=== PATIENT | male | born 1955 | race Caucasian/White ===

== ENCOUNTER 2024-02-11 13:45 | Inpatient (IN) ==
--- NOTE | 2024-02-11 14:23 | XRay Report ---
XR chest 1V portable CLINICAL HISTORY: stroke alert TECHNIQUE: Single frontal radiograph of the chest was obtained. Comparison: Comparison is made to chest radiograph 01/31/2024 FINDINGS: No lines and tubes are seen. The cardiomediastinal silhouette is normal. The lungs are clear. No evid ence of pleural effusion or pneumothorax. IMPRESSION: No acute chest disease. ACT 112: Negative or not required by law. Electronically signed by: Blair Dougherty M.D. 02/11/2024 2:22 PM
[2024-02-11 14:24] LABS: Hematocrit (blood only) 42.9 % (42.0-52.0); Hemoglobin 14.4 g/dl (14.0-18.0); Mean Corpuscular Hemoglobin 29.6 pg (25.0-34.0); Mean Corpuscular Hgb Conc 33.6 g/dL (32.0-36.0); Mean Corpuscular Volume 88.3 fL (80.0-100.0); Platelet Count 297 K/uL (130-400); RDW Coefficient of Variation 11.9 % (11.5-14.5); Red Blood Count 4.86 M/uL (4.70-6.10); White Blood Count 19.07 K/ul (4.8-10.8)
[2024-02-11 14:39] LABS: Albumin Globulin Ratio 1.1 (0.9-2); Albumin Level 3.9 gm/dl (3.4-5.0); BUN Creatinine Ratio 19.8 (10-20); Bilirubin,Total 0.8 mg/dl (0.2-1.0); Calcium 9.3 mg/dl (8.6-10.3); Creatinine Clr Calc Pharmacy 81.1 ml/min; Est GFR (African American) 102.5 ml/min; Est GFR (Non-African American) 88.5 ml/min; Globulin 3.6 gm/dl (2.5-4.0); Magnesium 1.7 mg/dl (1.7-2.4); Total Protein 7.5 gm/dl (6.0-8.3)
--- NOTE | 2024-02-11 14:41 | Emergency Department Note ---
Impression & Plan Back pain, Bulging of intervertebral disc between L4 and L5, Leukocytosis ED Provider Note NAME: BOUBACAR CASTORENA AGE: 69 SEX: M : 1955 ARRIVES VIA: Walk-In INFORMANT: Patient ED PROVIDER(S): Peter Richter DO CHIEF COMPLAINT: Back pain HPI: Patient is a 69-year-old male who presents to the ER with a past medical history of bulging disc at L4-L5 and hypertension for back pain. Pain has been present for the past 3 weeks. It radiates to the anterior aspect of the bilateral thighs where he has paresthesias. Recently over the past week and a half to 2 weeks it has been painful. Denies any weakness or numbness. Able to urinate move his bowels. He notes that depending on the position he has pain in his groin bilaterally. Last night he notes it moved from the left to the right side of his thighs and became worse than what was previously. He admits that he had an MRI and followed up with Dr. Chirinos of the lumbar spine just this past week. MRI showed a disc bulge but Dr. Chirinos at that time did not feel that it was causing his symptoms. Denies any fevers, trauma, IV drug use, cancer or surgeries or dialysis. Patient did just recently stop using steroids with the last dose being this past Tuesday. Denies any headache or change in vision. No chest pain or shortness of breath. No nausea, vomiting, or diarrhea. provides additional history and notes that they have been here 4 times in the past nearly 10 days and just seen here earlier today. They are not leaving as he can not get comfortable at home. ADDITIONAL HISTORY OBTAINED: Per HPI Chronic Medical/Social Conditions Affecting Care: Per HPI PAST MEDICAL HISTORY:See Below PAST SURGICAL HISTORY:See Below FAMILY HISTORY:See Below SOCIAL HISTORY:See Below HOME MEDICATIONS:See Below ALLERGIES:See Below VITALS:See Below PHYSICAL EXAMINATION: GENERAL: Sitting up in bed, alert, well appearing, well nourished, no distress, non-toxic EYE EXAM: normal conjunctiva. PERRL and EOM's grossly intact. OROPHARYNX: no exudate, no erythema, lips, buccal mucosa, and tongue normal and mucous membranes are moist NECK: supple, no nuchal rigidity, no adenopathy, non-tender LUNGS: Clear to auscultation. Normal chest wall mechanics HEART: no murmurs, S1 normal and S2 normal ABDOMEN: abdomen soft, non-tender, normo-active bowel sounds, no masses, no rebound or guarding. BACK: Back is symmetrical on inspection and there is no deformity, no midline tenderness, no CVA tenderness. SKIN: no rashes and no bruising UPPER EXTREMITIES: upper extremities are grossly normal. LOWER EXTREMITIES: No pitting edema. NEURO EXAM: Normal sensorium, cranial nerves II-XII grossly intact, normal speech, no gross weakness of arms, no gross weakness of legs. No drift. Finger to nose intact. Gross sensation intact. MEDICAL DECISION MAKING: Patient is a 69-year-old male who presents ER for the above-stated complaint. IV was established medicos obtained. Patient has had 4 visits in the past nearly 10 days. Was just seen here earlier today. Presents back with who is present at bedside who provides additional history and notes that he cannot go home. Labs show leukocytosis of 19,000. No significant anemia. INR unremarkable. BMP with sodium 133. LFTs bilirubin was unremarkable. CRP was mildly elevated at 1.5 and ESR was elevated at 50. UA was clean. notes that he has a positive Lyme test. No testing within the system and consequently Lyme was obtained. IgG was positive. IgM was was pending upon admission. He was given a dose of IV Rocephin. I do favor this likely explains his diffuse arthralgias and myalgias. In regards to the back pain he just recently had an MRI of the lumbar spine. Although he has a white count of fever this is likely secondary to steroids as he is been on them with his last dose on Tuesday. Patient was updated bedside. Discussed case with the hospitalist for further evaluation management treatment. He was given Toradol while in the ER and did help/improve his symptoms. CT abdomen pelvis was obtained again due to the significant leukocytosis but as discussed previously I do favor this secondary to the steroids. CT abdomen pelvis was unremarkable for any acute change. Consults/Care Managements Discussions: Per [facility] Triage Nursing notes reviewed. Limited review of prior medical records performed Vital Signs: reviewed and remarkable for no significant abnormalities Differential diagnosis: Musculoskeletal, disc herniation, fracture, metastatic disease, cord compression, discitis, sciatica, cauda equina, infection, aortic disease, renal colic, gastrointestinal, as well as other pathologies. ER treatment provided: See below Diagnostics interpreted by me include EKG and cardiac monitoring as listed below: -Cardiac Monitoring: An order was placed for continuous cardiac monitoring. The monitor shows a rate of 80 with sinus rhythm. -ECG: Sinus rhythm rate of 79 Normal axis No PVCs QTc 428 -Laboratory studies:Interpreted by me as stated above in MDM and shown below. Imaging studies: Xrays: As interpreted by me: Portable AP upright 1 view of the chest shows no focal infiltrate CTs show: CT abdomen pelvis shows no acute pathology Critical Care: None Past Med/Surg History Problem List (Updated 02/11/24 @ 18:31 by Peter Richter DO) Leukocytosis (Acute) Heart block AV first degree Acute bilateral low back pain with right-sided sciatica (Acute) Acute bilateral low back pain with left-sided sciatica (Acute) Bulging of intervertebral disc between L4 and L5 (Acute) Back pain (Acute) Hypertension (Acute) Encounter for pre-operative examination Medical History Kidney stones History of skin cancer Barretts esophagus GERD (gastroesophageal reflux disease) Surgical History Hx of tonsillectomy History of cholecystectomy History of appendectomy History of esophagogastroduodenoscopy (EGD) History of colonoscopy Social History Smoking Status: Never smoker Second Hand Exposure: No; Do You Dip or Chew Tobacco: Yes (CHEWS 1 CAN PER 2-3 DAYS); Hx Alcohol Use: Yes Alcohol type: beer Hx Substance Use: No Preferred Language: Welsh Communication Ability: Effective Wash Box Operator Required: No Beliefs That Will Affect Care: None Current Living Situation: Spouse Feels Safe at Home: Yes Assistive Devices: Glasses Allergies Allergies Allergy/AdvReac Type Severity Reaction Status Date / Time acetaminophen [From Tylenol] AdvReac Unknown Verified 02/02/24 09:49 Home Meds Home Medications Medication Instructions Recorded Confirmed atorvastatin 40 mg tablet (Lipitor) 40 mg PO QPM 02/13/18 02/11/24 multivitamin (Multiple Vitamins 1 tab PO QPM 02/13/18 02/11/24 tablet) omega 6-qzr-daj-fish oil 1,000 mg 1 tab PO QPM 02/13/18 02/11/24 (120 mg-180 mg) capsule (Fish Oil) aspirin 81 mg tablet,delayed 81 mg PO QPM 01/31/24 02/11/24 release pantoprazole 40 mg tablet,delayed 40 mg PO DAILY 01/31/24 02/11/24 release magnesium oxide 800 mg PO DAILY 02/02/24 02/11/24 doxycycline hyclate 100 mg tablet 100 mg PO BID 02/11/24 02/11/24 Previous Rx's Medication Instructions Recorded methylprednisolone 4 mg tablets in See Rx Instructions .Route 02/02/24 a dose pack (Medrol (Luther)) .COMPLEX #21 ea oxycodone 5 mg tablet 5 mg PO Q6H PRN pain #12 tabs 02/02/24 ketorolac 10 mg tablet 10 mg PO Q8H PRN pain 4 days #14 02/11/24 tabs Results & Data (ED) Vital Signs Vital Signs - 24 hr 02/11/24 13:47 02/11/24 13:47 02/11/24 16:00 Temperature 36.6 C Temperature Source Temporal Artery Scan Pulse Rate 86 Pulse Rate [Left Finger] 85 Respiratory Rate 18 18 16 Blood Pressure 129/77 Blood Pressure [Left Arm] 134/76 Blood Pressure Mean 94 Blood Pressure Mean [Left Arm] 95 Pulse Oximetry 99 98 Sepsis Recent Fever Within 48 Hours No Sepsis New/Unexplained Change in Mental Status N/A Sepsis Action Taken by Nursing No Action Required 02/11/24 16:01 Temperature Temperature Source Pulse Rate 91 H Pulse Rate [Left Finger] Respiratory Rate Blood Pressure Blood Pressure [Left Arm] Blood Pressure Mean Blood Pressure Mean [Left Arm] Pulse Oximetry Sepsis Recent Fever Within 48 Hours Sepsis New/Unexplained Change in Mental Status Sepsis Action Taken by Nursing Laboratory Data 02/11/24 14:05 02/11/24 14:05 Lab Results 02/11/24 02/11/24 02/11/24 Range/Units 14:00 14:05 15:08 WBC 19.07 H (4.8-10.8) K/ul RBC 4.86 (4.70-6.10) M/uL Hgb 14.4 (14.0-18.0) g/dl Hct 42.9 (42.0-52.0) % MCV 88.3 (80.0-100.0) fL MCH 29.6 (25.0-34.0) pg MCHC 33.6 (32.0-36.0) g/dL RDW Std Deviation 38.0 (36.4-46.3) fL RDW Coeff of Radha 11.9 (11.5-14.5) % Plt Count 297 (130-400) K/uL MPV 9.0 L (9.4-12.4) fL ESR 59 H (0-20) mm/hr PT Cancelled 11.4 INR Cancelled 1.1 APTT Cancelled 28 PTT Ratio Cancelled 1.0 Sodium 133 L (136-145) mmol/L Potassium 4.0 (3.5-5.1) mmol/L Chloride 100 (98-107) mmol/L Carbon Dioxide 23 (21-32) mmol/L Anion Gap 10 (3-11) BUN 17 (6-23) mg/dl Creatinine 0.86 (0.6-1.4) mg/dl Est Cr Clr Drug Dosing 81.1 ml/min Est GFR ( Amer) 102.5 ml/min Est GFR (Non-Af Amer) 88.5 ml/min BUN/Creatinine Ratio 19.8 (10-20) Glucose 121 H (70-99(Fasting)) mg/dl Calcium 9.3 (8.6-10.3) mg/dl Magnesium 1.7 (1.7-2.4) mg/dl Total Bilirubin 0.8 (0.2-1.0) mg/dl AST 23 (13-39) U/L ALT 48 (7-52) U/L Alkaline Phosphatase 145 H (34-104) U/L Total Creatine Kinase 41 (30-223) U/L C-Reactive Protein 1.53 H (0-0.5) mg/dl Total Protein 7.5 (6.0-8.3) gm/dl Albumin 3.9 (3.4-5.0) gm/dl Globulin 3.6 (2.5-4.0) gm/dl Albumin/Globulin Ratio 1.1 (0.9-2) Lyme Disease Screen Positive H (Negative) Lyme Tier 2 IgG Confirm Positive H (Negative) Administered Medications Discontinued Medications Ceftriaxone Sodium (Rocephin) 2,000 mg in 50 mls @ 100 mls/hr IV NOW STA Stop: 02/11/24 15:06 Last Infusion: 02/11/24 15:23 Dose: Infused Documented By: Admin: 02/11/24 14:53 Dose: 100 mls/hr Documented By: SETH Sodium Chloride (Nss) 1,000 mls @ 999 mls/hr IV .Q1H1M ONE Stop: 02/11/24 15:42 Last Infusion: 02/11/24 15:51 Dose: Infused Documented By: Admin: 02/11/24 14:50 Dose: 999 mls/hr Documented By: SETH Ioversol (Optiray 320 100ml) 93 ml IV ONCE ONE Stop: 02/11/24 15:45 Last Admin: 02/11/24 15:45 Dose: 93 ml Documented By: ASHLEY Ketorolac Tromethamine (Ketorolac Tromethamine 15 Mg/Ml Vial) 15 mg IV NOW ONE Stop: 02/11/24 14:38 Last Admin: 02/11/24 14:51 Dose: 15 mg Documented By: SETH Imaging Data Radiologist's Impression: Chest X-Ray 02/11/24 13:53 XR chest 1V portable CLINICAL HISTORY: stroke alert TECHNIQUE: Single frontal radiograph of the chest was obtained. Comparison: Comparison is made to chest radiograph 01/31/2024 FINDINGS: No lines and tubes are seen. The cardiomediastinal silhouette is normal. The lungs are clear. No evidence of pleural effusion or pneumothorax. IMPRESSION: No acute chest disease. ACT 112: Negative or not required by law. Electronically signed by: Blair Dougherty M.D. 02/11/2024 2:22 PM Abdomen/Pelvis CT 02/11/24 14:42 CT abd pelvis IV con only CLINICAL HISTORY: abd pain wbc 20k and abck pain TECHNIQUE: Helical axial images of the abdomen and pelvis were obtained and displayed. Automated dose lowering techniques and/or adjustment according to patient size were utilized for this exam. This exam was performed with intravenous contrast. CT DOSE: 937.8 mGy.cm COMPARISON: Comparison is made to CT abdomen pelvis 01/31/2024 FINDINGS: Lower chest: Bibasilar atelectasis versus scarring is seen. Liver: Unremarkable. No focal lesions are seen. Gallbladder and biliary tree: Patient is status post cholecystectomy. Physiologic prominence of the biliary ducts is noted. Pancreas: Unremarkable, no focal lesions. Spleen: Unremarkable. Adrenals: Unremarkable. Kidneys and ureters: Nonobstructive nephrolithiasis is seen. 11 mm cyst is seen on the left. Bladder: Unremarkable. Reproductive organs: Prostatomegaly is seen. Bowel: Moderate hiatal hernia is seen. Lymph nodes Retroperitoneal: Unremarkable. Pelvic: Unremarkable. Mesenteric: Unremarkable. Peritoneum: Normal. Vessels: Unremarkable. Abdominal wall: Unremarkable. Bones: Unremarkable. IMPRESSION: 1. No acute abnormality to explain leukocytosis. 2. Diverticulosis without diverticulitis. 3. Status post cholecystectomy. ACT 112: Negative or not required by law. Electronically signed by: Blair Dougherty M.D. 02/11/2024 4:06 PM Discharge Plan Visit Data Chief Complaint: Back Injury/Pain ED Provider: Peter Richter Discharge Problem: Back pain, Bulging of intervertebral disc between L4 and L5, Leukocytosis Patient Disposition: Admitted As Inpatient Discharge Instructions Interventions: ED Discharge Assessment Last Done: 02/11/24 18:03 Discharge Problem: Back pain Qualifiers: Back pain location: low back pain Chronicity: acute Back pain laterality: u nspecified Sciatica presence: unspecified whether sciatica present Qualified Code(s): M54.50 - Low back pain, unspecified Leukocytosis Qualifiers: Leukocytosis type: unspecified Qualified Code(s): D72.829 - Elevated white blood cell count, unspecified
[2024-02-11] MEDS: SODIUM CHLORIDE 0.9% 1,000 ML IV ONE (14:50)
[2024-02-11] MEDS: KETOROLAC TROMETHAMINE 15 MG/ML VIAL IV ONE (14:51)
[2024-02-11] MEDS: cefTRIAXone SODIUM 2,000 MG/50 ML BAG IV STA (14:53)
[2024-02-11 14:59] LABS: C Reactive Protein 1.53 mg/dl (0-0.5)
[2024-02-11 15:16] LABS: Appearance Urine Clear (Clear); Bacteria Urine Automated None Seen (None Seen); Bilirubin Urine Negative (Negative); Blood Urine Negative (Negative); Cast Urine Automated 0-2 /lpf (0-2); Color Urine Yellow; Epithelial Cell Urine Auto 0-2 /hpf (0-2); Glucose Urine UA Negative (Negative); Ketones Urine 1+ (Negative); Leukocyte Esterase Urine Trace (Negative); Nitrite Urine Negative (Negative); Protein Urine Negative (Negative); RBC Urine Automated 0-2 /hpf (0-2); Specific Gravity Urine 1.017 (1.000-1.030); Urobilinogen Urine Negative (Negative); WBC Urine Automated 0-5 /hpf (0-5)
[2024-02-11] MEDS: OPTIRAY 320 100ml IV ONE (15:45)
[2024-02-11 15:55] LABS: INR 1.1 (0.9-1.1); Partial Thromboplastin Time 28 Seconds (21-31); Prothrombin Time 11.4 Seconds (9.0-12.0)
--- NOTE | 2024-02-11 16:09 | CT Scan Report ---
CT abd pelvis IV con only CLINICAL HISTORY: abd pain wbc 20k and abck pain TECHNIQUE: Helical axial images of the abdomen and pelvis were obtained and displayed. Automated dose lowering techniques and/or adjustment according to patient size were utilized for this exam. This e xam was performed with intravenous contrast. CT DOSE: 937.8 mGy.cm COMPARISON: Comparison is made to CT abdomen pelvis 01/31/2024 FINDINGS: Lower chest: Bibasilar atelectasis versus scarring is seen. Liver: Unremarkable. No focal lesions are seen. Gallbladder and biliary tree: Patient is status post cholecystectomy. Physiologic prominence of the b iliary ducts is noted. Pancreas: Unremarkable, no focal lesions. Spleen: Unremarkable. Adrenals: Unremarkable. Kidneys and ureters: Nonobstructive nephrolithiasis is seen. 11 mm cyst is seen on the left. Bladder: Unremarkable. Reproductive organs: Prostatomegaly is seen. Bowel: Moderate hiatal hernia is seen. Lymph nodes Retroperitoneal: Unremarkable. Pelvic: Unremarkable. Mesenteric: Unremarkable. Peritoneum: Normal. Vessels: Unremarkable. Abdominal wall: Unremarkable. Bones: Unremarkable. IMPRESSION: 1. No acute abnormality to explain leukocytosis. 2. Diverticulosis without diverticulitis. 3. Status post cholecystectomy. ACT 112: Negative or not required by law. Electronically signed by: Blair Dougherty M.D. 02/11/2024 4:06 PM
--- NOTE | 2024-02-11 17:04 | History & Physical Report ---
Date of Service February 11, 2024 Assessment & Plan (1) Acute bilateral low back pain with left-sided sciatica: (2) Hypertension: (3) Heart block AV first degree: Plan: Diffuse myalgias, lumbar pain, 1*HB , suspect 2/2 Lyme disease - Past history of Lyme 10 years ago. Could be IgG+ from prior exposure. Rescreen and western blot pending. Reported lyme positive has only taken 1 dose of doxycycline for this Rocephin given in the ER due to first-degree heart block. As NV is less than 300, will switch to doxycycline 100 mg twice daily IV on admission Trend white count daily In house Lyme test pending No thrombocytopenia or transaminitis to suggest Anaplasma Multimodal pain control. Tylenol, Toradol, breakthrough morphine PT/OT pending ESR/CRP are elevated. CRP 1.53, this is trended UA is not infected appearing Statin temporarily held Blood cultures pending -If IgM is negative/Western blot is negative then add rheum workup at that time. CK pending. Diffuse myalgias and polyarthralgias; strength and sensation is intact without any deficits GERD, hiatal hernia PPI continued DVT prophylaxis: Lovenox Disposition: Medical/telemetry given suspected line with new heart block CODE STATUS: Full code Diet: Heart healthy History of Present Illness Primary Care Provider: Kirstie Jerome is a 69-year-old male with multiple recent h ER visits for low back pain, anterior thigh paresthesias, and diffuse muscle aches. Patient was seen in the ER and had an MRI on 02/02/2024 which showed no acute fracture or subluxation or marrow edema, disc degeneration at L4-L5 with mild bilateral for aminal stenosis and no central canal stenosis. Patient did follow-up with Dr. Chirinos who felt symptoms were unlikely related to this. Patient was placed on steroids which were stopped approximately 4 days ago. Reportedly with an outpatient Lyme test which was positive, patient has just recently taken his first dose of doxycycline for this. Patient's reports they have been to the ER 4 times in 10 days, patient has not improved in the last week and is clear that due to his pain and his inability to perform functional activities will not take him home at this time. EKG: Sinus with first-degree AV block, AV block is new compared to 01/31/2024 No transaminitis or thrombocytopenia to suggest Anaplasma CRP/ESR are elevated. White count is elevated 19. Has recently been on steroids which were stopped 4 days ago. CTA/P: No acute findings Chest x-ray no acute findings 02/01 MRIL-spine: No fracture/subluxation/marrow edema. Mild disc degeneration L4-L5 with mild bilateral for medial stenosis. No significant canal stenosis CTA/P 01/30: No acute findings, moderate hiatal hernia Chest x-ray 01/31/2024: No acute finding Reportedly with positive Lyme test as an outpatient, no record of this. Patient was given Rocephin x 1 for Lyme coverage and with evidence of heart block on EKG. NV is less than 300. 3 weeks ago developed back pain bilateral mid low back. Also had aching down the front of both legs. Tylneol didn't help. Went to a Chiropractor who referred him to the ER. ER assessment at that time was unremarkable. Was discharged home and still had severe abdominal pain, back pain, and radiatino of aching into his thighs, hips, and calves bilaterally. Had an MRI, and followed up with Dr. Chirinos. [place] that symptoms were not consistent with mild disease seen MRI. Had additional outpatient testing including a lyme which was reportedly positive. Has continued to have pain worse at night and radiating down his legs. Was prescribed doxycycline, but just took his first dose of doxycycline last night. Took one dose last night, but pain was severe last night and could not function at home so came back. Did discuss return home and tried to go home earlier, but was again in too much discomfort and pain with tx with ER provider however due to his severe symptoms limiting his ability to function is not willing to return home at this time. Is recommended for admission for tx of Lyme disease. Feels fatigued and weak all over, but no focal weakness Appetite diminished, not eating and drinking well Took a course of medrol dosepack which did not touch his pain at all. Also tried alternating ibuprofen and tylneol which again did nothing. He has had a hsitory of Lyme disease 10-15 years ago with erythema migrans at that time. No recent tick bites or rash to his knowledge. MedHx: Denies other medication history. Takes atorvastain sinc eage 40, protonix for acid reflux, baby aspirin for primary prevention and not taken this all week. Medical History: Reviewed Medications: Reviewed Surgical History: Reviewed Family history: Reviewed Allergies: Reviewed Social History: REviewed Code Status: Full Allergies Allergy/AdvReac Type Severity Reaction Status Date / Time acetaminophen [From Tylenol] AdvReac Unknown Verified 02/02/24 09:49 Home Medications Medication Instructions Recorded Confirmed Type atorvastatin 40 mg tablet (Lipitor) 40 mg PO QPM 02/13/18 02/11/24 History multivitamin (Multiple Vitamins 1 tab PO QPM 02/13/18 02/11/24 History tablet) omega 2-iao-ajx-fish oil 1,000 mg 1 tab PO QPM 02/13/18 02/11/24 History (120 mg-180 mg) capsule (Fish Oil) aspirin 81 mg tablet,delayed 81 mg PO QPM 01/31/24 02/11/24 History release pantoprazole 40 mg tablet,delayed 40 mg PO DAILY 01/31/24 02/11/24 History release magnesium oxide 800 mg PO DAILY 02/02/24 02/11/24 History methylprednisolone 4 mg tablets in See Rx Instructions .Route 02/02/24 02/11/24 Rx a dose pack (Medrol ([place])) .COMPLEX #21 ea oxycodone 5 mg tablet 5 mg PO Q6H PRN pain #12 tabs 02/02/24 02/11/24 Rx doxycycline hyclate 100 mg tablet 100 mg PO BID 02/11/24 02/11/24 History ketorolac 10 mg tablet 10 mg PO Q8H PRN pain 4 days #14 02/11/24 02/11/24 Rx tabs Past Med/Surg History Problem List Heart block AV first degree Acute bilateral low back pain with right-sided sciatica (Acute) Acute bilateral low back pain with left-sided sciatica (Acute) Bulging of intervertebral disc between L4 and L5 (Acute) Back pain (Acute) Hypertension (Acute) Encounter for pre-operative examination Medical History Kidney stones History of skin cancer Barretts esophagus GERD (gastroesophageal reflux disease) Surgical History Hx of tonsillectomy History of cholecystectomy History of appendectomy History of esophagogastroduodenoscopy (EGD) History of colonoscopy Social History Smoking Status: Never smoker Second Hand Exposure: No; Do You Dip or Chew Tobacco: Yes (CHEWS 1 CAN PER 2-3 DAYS); Hx Alcohol Use: Yes Alcohol type: beer Hx Substance Use: No Preferred Language: Togolese Communication Ability: Effective Sanitary Inspector Required: No Beliefs That Will Affect Care: None Current Living Situation: Spouse Feels Safe at Home: Yes Assistive Devices: Glasses Physical Exam Physical Exam: General: A&Ox3. NAD. Cooperative. HEENT: Atraumatic, normocephalic. Pulm: CTAB A&P. -wheezes, -rales, -rhonchi. Symmetrical chest rise. No increased work of breathing. No respiratory distress. Cardiac: RRR, -mrg. Radial pulses intact and symmetrical. Abdominal: Nontender, nondistended, soft. BS present. CRANIAL NERVES: II: Pupils equal and reactive, no relative afferent pupillary defect, no VF cuts VII: no asymmetry, no nasolabial fold flattening VIII: normal hearing to speech MOTOR: RUE: 5/5 Shoulder internal rotation, external rotation, flexion, extension, abduction, adduction 5/5 Elbow flexion/extension, wrist flexi on/extension 5/5 grassroots organizer strength, finger flexion/extens ion, interosseus LUE: 5/5 Shoulder internal rotation, external rotation, flexion, extension, abduction, adduction 5/5 Elbow flexion/extension, wrist flexi on/extension 5/5 grassroots organizer strength, finger flexion/extens ion, interosseus RLE: 5/5 to hip flexion/extension, knee flexi on/extension, ankle dorsiflexion/plantarflexion LLE: 5/5 to hip flexion/extension, knee flexi on/extension, ankle dorsiflexion/plantarflexion SENSORY: Normal to touch in upper and lower extremities without deficit or asymmetry Results & Data Results & Data Vital Signs (Past 12 Hours) Vital Signs Temp Pulse Pulse Resp BP BP Pulse Ox 02/11/24 16:01 91 H 02/11/24 16:00 85 16 134/76 98 02/11/24 13:47 18 02/11/24 13:47 36.6 C 86 18 129/77 99 PG Care Time/CCT Total # of Minutes Spent Total Time Spent with Patient: Total time spent is greater than 50% in coordination of care (as documented) at patient's floor/unit and/or counseling patient: Coding Level of Care Code 14949 INT INP/OBS CARE MIN Diagnoses Acute bilateral low back pain with left-sided sciatica M54.42 Hypertension I10 Hypertension type: unspecified Heart block AV first degree I44.0 (2) Hypertension Hypertension type: unspecified Qualified Code(s): I10 - Essential (primary) hypertension
[2024-02-11 17:53] LABS: Lyme Screen Rflx Confirmation Positive (Negative)
[2024-02-11 18:27] LABS: Lyme Ab IgG 2nd Tier Confirm Positive (Negative)
[2024-02-11 18:28] LABS: Lyme Ab IgM 2nd Tier Confirm Positive (Negative)
[2024-02-11] MEDS: oxyCODONE HCL IR 5 MG TAB (IMMEDIATE RELEASE) PO PRN (19:08)
[2024-02-11] MEDS: KETOROLAC TROMETHAMINE 15 MG/ML VIAL IV PRN (21:09)
[2024-02-11] MEDS: ENOXAPARIN INJ 40 MG/0.4 ML SYR SQ SCH (21:09)
[2024-02-11] MEDS: DOXYCYCLINE HYCLATE 100 MG in DEXTROSE 5% MINI-B 100 ML IV SCH (21:10)
[2024-02-11] MEDS: OMEGA-3 (PURIFIED FISH OIL) 1 GM CAP PO SCH (21:10)
[2024-02-11] MEDS: ASPIRIN 81 MG ECTAB PO SCH (21:10)
[2024-02-11] MEDS: MULTIVITAMIN TAB PO SCH (21:10)
[2024-02-11] MEDS: ACETAMINOPHEN 325 MG TAB PO PRN (23:19)
[2024-02-12] MEDS: MoRPHine SULFATE 2 MG/ML CARP IV ONE (01:58)
[2024-02-12 07:21] LABS: Basophils # (auto) 0.04 K/uL (0.00-0.20); Basophils % (auto) 0.5 %; Eosinophils # (auto) 0.09 K/uL (0.00-0.50); Hematocrit (blood only) 41.3 % (42.0-52.0); Hemoglobin 13.6 g/dl (14.0-18.0); Immature Granulocytes # (auto) 0.06 K/uL (0.01-0.20); Immature Granulocytes % (auto) 0.7 %; Lymphocytes # (auto) 1.42 K/uL (1.20-3.40); Lymphocytes % (auto) 16.4 %; Mean Corpuscular Hemoglobin 29.9 pg (25.0-34.0); Mean Corpuscular Hgb Conc 32.9 g/dL (32.0-36.0); Mean Corpuscular Volume 90.8 fL (80.0-100.0); Mean Platelet Volume 9.4 fL (9.4-12.4); Monocytes # (auto) 0.57 K/uL (0.11-0.59); Monocytes % (auto) 6.6 %; Neutrophils # (auto) 6.46 K/uL (1.40-6.50); Neutrophils % (auto) 74.8 %; Platelet Count 232 K/uL (130-400); RDW Coefficient of Variation 12.1 % (11.5-14.5); RDW Standard Deviation 39.9 fL (36.4-46.3); Red Blood Count 4.55 M/uL (4.70-6.10); White Blood Count 8.64 K/ul (4.8-10.8)
[2024-02-12 07:34] LABS: BUN Creatinine Ratio 20.2 (10-20); C Reactive Protein 3.8 mg/dl (0-0.5); Calcium 8.7 mg/dl (8.6-10.3); Est GFR (African American) 103.5 ml/min; Est GFR (Non-African American) 89.3 ml/min
[2024-02-12] MEDS: PANTOprazole 40 MG TAB PO SCH (08:15)
--- NOTE | 2024-02-12 10:19 | Hospitalist Progress Note ---
Date of Service February 12, 2024 Assessment & Plan (1) Disseminated Lyme disease: Plan: 69 yo M here admitted for intractable back pain. - As for the cause of his back pain --> likely secondary to lyme disease - Patient had L spine MRI during previous ER visit -- it should only modest disc disease --> Dr. Chirinos was contacted and recommended no surg intervention and steroid pack --> patient completed pack without improved and returned to ER for ongoing intractable pain. - He had lyme disease 10+ years ago, which may explain his IgG positivity --> however serology repeated here is Pos for both IgG and IgM, suggestive of acute infection - Platelets normal and LFTs normal -- low suspicion for anaplasmosis/other tick borne disease - Furthermore, EKG in ED showing new 1st degree AV nish blockade -- likely a marker of early disseminated lyme -- this would fit with his report of an itchy spot on his skin several weeks ago and current IgM detection Rocephin given in the ER due to first-degree heart block. As [place] is less than 300, will switch to doxycycline 100 mg twice daily IV on admission. Recommend 14-21 day duration given cardiac involvement of disease - WBC elevated to 19 on admission --> normalized to 8 today. - As for his pain regimen --> Tylenol 650mg q6 hrs scheduled; Toradol 10mg q6h scheduled; Lidoderm patch daily scheduled, Voltaren Gel BID scheduled; Oxycodone 10mg IR for prn for breakthrough. Kiel can leave hospital once he can be comfortable maintained on oral pain med regimen. He has required two seprate 2mg IV morphine doses for additional analgesia from admission until this afternoon GERD, hiatal hernia PPI continued DVT prophylaxis: Lovenox Disposition: Medical/telemetry given suspected line with new heart block CODE STATUS: Full code Diet: Heart healthy Admission and Anticipated Discharge Date Admission Date: February 11, 2024 Subjective Patient doing better today pain porras. He says the pain that had been radiating down his legs has resolved -- although he still feels it in his back. He did request a bowel regimen. Patient denies a tick bite within past few weeks-months -- although he does recall an itchy spot on his R shoulder several weeks ago. There was no rash at the site -- other than martinez/redness from his scratching. He denies any flu like symtpoms earlier this summer. Review of Systems Review of Systems: All systems reviewed & are unremarkable except as noted in HPI & below Musculoskeletal: + back pain Physical Exam Constitutional: WD/WN, vitals as above Eyes: + anicteric sclerae ENMT: external ear and nose normal, oropharynx normal Neck: trachea midline, no thyromegaly Respiratory: normal respiratory effort, lungs clear to auscultation Cardiovascular: RRR, no murmur, no edema Gastrointestinal (Abdomen): normal bowel sounds, soft, nontender, no hepatosplenomegaly Musculoskeletal: Head/Neck/Chest: normocephalic and head atraumatic Spinous processes non-tender to palpation Paraspinal muscles non-tender to palpation Skin: no rashes, warm and dry Results & Data Results & Data Vital Signs (Past 12 Hours) Vital Signs Temp Pulse Resp BP Pulse Ox O2 Del Method 02/12/24 07:55 36.5 C 75 16 165/79 H 98 Room Air 02/12/24 03:48 36.6 C 74 12 142/77 H 96 Room Air 02/11/24 23:29 36.7 C 77 14 155/76 H 94 Room Air PG Care Time/CCT Total # of Minutes Spent Total Time Spent with Patient: Total time spent is greater than 50% in coordination of care (as documented) at patient's floor/unit and/or counseling patient: C[place] [address] SUB INP/OBS CARE 2/35MIN Patient Type Established Diagnoses Disseminated Lyme disease A69.20
[2024-02-12] MEDS: DICLOFENAC SOD 1% GEL 100 GM TUBE EXT SCH (11:13)
[2024-02-12] MEDS: LIDOCAINE 5% 1 PATCH TD STA (11:13)
[2024-02-12] MEDS: oxyCODONE HCL IR 5 MG TAB (IMMEDIATE RELEASE) PO PRN (11:16)
[2024-02-12] MEDS: ACETAMINOPHEN 325 MG TAB PO SCH ×2 (11:27→14:32)
[2024-02-12] MEDS: KETOROLAC TROMETHAMINE 15 MG/ML VIAL IV SCH (14:32)
[2024-02-12] MEDS: MoRPHine SULFATE 2 MG/ML CARP IV STA (18:08)
[2024-02-13] MEDS: MoRPHine SULFATE 2 MG/ML CARP IV ONE (01:48)
[2024-02-13] MEDS: ONDANSETRON INJ 2 MG/ML 2 ML VIAL IV ONE (01:49)
[2024-02-13 06:43] LABS: BUN Creatinine Ratio 21.7 (10-20); Calcium 8.7 mg/dl (8.6-10.3); Est GFR (African American) 112.3 ml/min; Est GFR (Non-African American) 96.9 ml/min; Potassium 3.6 mmol/L (3.5-5.1)
[2024-02-13 07:24] LABS: Basophils # (auto) 0.03 K/uL (0.00-0.20); Basophils % (auto) 0.3 %; Eosinophils # (auto) 0.12 K/uL (0.00-0.50); Eosinophils % (auto) 1.4 %; Hematocrit (blood only) 39.5 % (42.0-52.0); Hemoglobin 13.8 g/dl (14.0-18.0); Immature Granulocytes # (auto) 0.06 K/uL (0.01-0.20); Immature Granulocytes % (auto) 0.7 %; Lymphocytes # (auto) 1.26 K/uL (1.20-3.40); Lymphocytes % (auto) 14.2 %; Mean Corpuscular Hemoglobin 30.1 pg (25.0-34.0); Mean Corpuscular Hgb Conc 34.9 g/dL (32.0-36.0); Mean Corpuscular Volume 86.1 fL (80.0-100.0); Mean Platelet Volume 9.4 fL (9.4-12.4); Monocytes # (auto) 0.76 K/uL (0.11-0.59); Monocytes % (auto) 8.6 %; Neutrophils # (auto) 6.63 K/uL (1.40-6.50); Neutrophils % (auto) 74.8 %; Platelet Count 254 K/uL (130-400); RDW Coefficient of Variation 11.6 % (11.5-14.5); RDW Standard Deviation 36.3 fL (36.4-46.3); Red Blood Count 4.59 M/uL (4.70-6.10); White Blood Count 8.86 K/ul (4.8-10.8)
[2024-02-13] MEDS: DOCUSATE SODIUM SYRUP 100 MG/10 ML UDC PO PRN (09:04)
[2024-02-13] MEDS ORDERED: oxyCODONE HCL IR 5 MG TAB (IMMEDIATE RELEASE) PO PRN (13:43)
[2024-02-13] MEDS: oxyCODONE HCL IR 5 MG TAB (IMMEDIATE RELEASE) PO PRN (13:52)
[2024-02-13] MEDS: ONDANSETRON INJ 2 MG/ML 2 ML VIAL IV PRN (15:57)
[2024-02-13] MEDS: SODIUM CHLORIDE 1 GM TABLET PO SCH (17:32)
[2024-02-13] MEDS ORDERED: STAT IV/IM STA (17:45)
--- NOTE | 2024-02-13 17:59 | Nephrology Consultation ---
Date of Consultation February 13, 2024 Assessment & Plan (1) Hyponatremia: * Acute hyponatremia. Patient is clinically euthyroid. Blood pressure is elevated, clinically doubt adrenal insufficiency. No evidence of CHF/cirrhosis/nephrosis. Patient is clinically euvolemic. Clinically suspect appropriate ADH release in response to severe low back pain. * Neurologically intact despite hyponatremia * Patient reports that he is unable to tolerate oral NaCl. Hold salt tablets. Will provide 3% NaCl * Will provide 50 cc 3% NaCl IV x 1 * Obtain stat BMP in 1 hour * Obtain Uosm, BMP with am labs (2) Hypertension: * Blood pressure is fluctuating in response to back pain. Will monitor (3) Acute bilateral low back pain with right-sided sciatica: * Continue analgesic therapy. Recommend avoiding NSAIDs due to potential risk for renal injury (4) Disseminated Lyme disease: * Patient tested lying IgM positive * Currently on doxycycline therapy History of Present Illness Reason for Consultation: Acute hyponatremia Attending Physician: Jagdish Trujillo History of Present Illness Mr. Milligan is a 69-year-old white male who is seen at the request of the [facility] hospitalist service for evaluation of acute hyponatremia. Information for the HPI is obtained from direct patient interview and review of the EMR. HPI is summarized as follows: Mr. Milligan has preserved. He has not required nephrology evaluation in the past. Baseline creatinine is 0.7. His medical history is significant for hypertension, kidney stones, and GERD. Mr. Milligan also has a history of lumbar disc herniation and low back discomfort. He has undergone evaluation by orthopedic surgery in the past but did not require surgical intervention. He was recently seen by Dr. Chirinos and placed on a Medrol taper. He completed this approximately 1 week ago. Mr. Milligan presented to [facility] 02/11/2024 for evaluation of low back pain with radiation to the groin. Abdominal pelvis CT with IV contrast revealed nonobstructive kidney stones bilaterally. There was no acute intra-abdominal abnormality to explain his discomfort or leukocytosis. On further questioning Mr. Milligan's expressed concern for possible Lyme disease. Serologic testing was positive for recent infection. Mr. Milligan was given IV Rocephin. His discomfort has improved. Throughout his hospitalization he has been hemodynamically stable. Serum sodium, however, has progressively dropped from 137 to 121 mmol/L. Currently Mr. Milligan states that his back discomfort is improved. He is up and ambulating in his room without difficulty. He notes, however, that he has poor oral intake and has not eaten today. He is suffering from mild nausea. He is uncertain that he would be able to keep down salt tablets. Mr. Milligan denies any prior history for hyponatremia. He denies hypothyroidism, adrenal insufficiency, history of congestive heart failure/cirrhosis/nephrosis. Allergies Allergy/AdvReac Type Severity Reaction Status Date / Time acetaminophen [From Tylenol] AdvReac Unknown Verified 02/02/24 09:49 Home Medications Medication Instructions Recorded Confirmed Type atorvastatin 40 mg tablet (Lipitor) 40 mg PO QPM 02/13/18 02/11/24 History multivitamin (Multiple Vitamins 1 tab PO QPM 02/13/18 02/11/24 History tablet) omega 1-woh-bgv-fish oil 1,000 mg 1 tab PO QPM 02/13/18 02/11/24 History (120 mg-180 mg) capsule (Fish Oil) aspirin 81 mg tablet,delayed 81 mg PO QPM 01/31/24 02/11/24 History release pantoprazole 40 mg tablet,delayed 40 mg PO DAILY 01/31/24 02/11/24 History release magnesium oxide 800 mg PO DAILY 02/02/24 02/11/24 History methylprednisolone 4 mg tablets in See Rx Instructions .Route 02/02/24 02/11/24 Rx a dose pack (Medrol (Luther)) .COMPLEX #21 ea oxycodone 5 mg tablet 5 mg PO Q6H PRN pain #12 tabs 02/02/24 02/11/24 Rx doxycycline hyclate 100 mg tablet 100 mg PO BID 02/11/24 02/11/24 History ketorolac 10 mg tablet 10 mg PO Q8H PRN pain 4 days #14 02/11/24 02/11/24 Rx tabs Patient History Medical History Kidney stones History of skin cancer Barretts esophagus GERD (gastroesophageal reflux disease) Surgical History Hx of tonsillectomy History of cholecystectomy History of appendectomy History of esophagogastroduodenoscopy (EGD) History of colonoscopy Social History Smoking Status: Never smoker Second Hand Exposure: No; Do You Dip or Chew Tobacco: Yes (CHEWS 1 CAN PER 2-3 DAYS); Hx Alcohol Use: No Hx Substance Use: No Preferred Language: Lao Communication Ability: Effective Flue Dust Laborer Required: No Beliefs That Will Affect Care: None Current Living Situation: Family Other Information That Helps Us Care for You: No Feels Safe at Home: Yes Safety Concerns: Feels Safe At This Time Assistive Devices: None Review of Systems Constitutional: no fever Eyes: no problem reported Ear, Nose, Mouth, Throat: no problem reported Respiratory: no cough and no dyspnea Cardiovascular: no chest pain Gastrointestinal: + abdominal pain; no nausea, no vomiting and no diarrhea/loose stools Genitourinary: no dysuria, no urinary hesitancy or no hematuria Integumentary: no rash Physical Exam Constitutional: not in distress Eyes: PERRL, conjunctivae normal, anicteric sclerae ENMT: external ear and nose normal, oropharynx normal Neck: trachea midline, no thyromegaly Respiratory: normal respiratory effort, lungs clear to auscultation Cardiovascular: RRR, no murmur, no edema Gastrointestinal (Abdomen): normal bowel sounds, soft, nontender, no hepatosplenomegaly Musculoskeletal: Extremities: no cyanosis and no clubbing Skin: no rashes, warm and dry Neurologic: Speech / Cognition: normal speech and normal cognition Results & Data Vital Signs (Past 12 Hours) Vital Signs Temp Pulse Pulse Resp BP BP Pulse Ox 02/13/24 15:33 36.7 C 63 18 189/94 H 97 02/13/24 14:07 64 02/13/24 11:52 36.5 C 111 H 18 144/76 H 97 02/13/24 11:13 77 02/13/24 08:00 36.6 C 64 18 168/80 H 96 O2 Del Method 02/13/24 15:33 Room Air 02/13/24 14:07 02/13/24 11:52 Room Air 02/13/24 11:13 02/13/24 08:00 Room Air Laboratory Results Laboratory Results WBC 8.86 K/ul (4.8-10.8) 02/13/24 05:56 RBC 4.59 M/uL (4.70-6.10) L 02/13/24 05:56 Hgb 13.8 g/dl (14.0-18.0) L 02/13/24 05:56 Hct 39.5 % (42.0-52.0) L 02/13/24 05:56 MCV 86.1 fL (80.0-100.0) D 02/13/24 05:56 MCH 30.1 pg (25.0-34.0) 02/13/24 05:56 MCHC 34.9 g/dL (32.0-36.0) 02/13/24 05:56 RDW Std Deviation 36.3 fL (36.4-46.3) L 02/13/24 05:56 RDW Coeff of Radha 11.6 % (11.5-14.5) 02/13/24 05:56 Plt Count 254 K/uL (130-400) 02/13/24 05:56 MPV 9.4 fL (9.4-12.4) 02/13/24 05:56 Immature Gran % (Auto) 0.7 % 02/13/24 05:56 Neut % (Auto) 74.8 % 02/13/24 05:56 Lymph % (Auto) 14.2 % 02/13/24 05:56 Hickman % (Auto) 8.6 % 02/13/24 05:56 Eos % (Auto) 1.4 % 02/13/24 05:56 Baso % (Auto) 0.3 % 02/13/24 05:56 Neut # (Auto) 6.63 K/uL (1.40-6.50) H 02/13/24 05:56 Lymph # (Auto) 1.26 K/uL (1.20-3.40) 02/13/24 05:56 Hickman # (Auto) 0.76 K/uL (0.11-0.59) H 02/13/24 05:56 Eos # (Auto) 0.12 K/uL (0.00-0.50) 02/13/24 05:56 Baso # (Auto) 0.03 K/uL (0.00-0.20) 02/13/24 05:56 Immature Gran # (Auto) 0.06 K/uL (0.01-0.20) 02/13/24 05:56 ESR 59 mm/hr (0-20) H 02/11/24 14:05 PT 11.4 Seconds (9.0-12.0) 02/11/24 15:08 INR 1.1 (0.9-1.1) 02/11/24 15:08 APTT 28 Seconds (21-31) 02/11/24 15:08 PTT Ratio 1.0 02/11/24 15:08 Sodium 121 mmol/L (136-145) L 02/13/24 12:24 Potassium 3.6 mmol/L (3.5-5.1) 02/13/24 05:56 Chloride 94 mmol/L (98-107) L 02/13/24 05:56 Carbon Dioxide 23 mmol/L (21-32) 02/13/24 05:56 Anion Gap 9 (3-11) 02/13/24 05:56 BUN 15 mg/dl (6-23) 02/13/24 05:56 Creatinine 0.69 mg/dl (0.6-1.4) 02/13/24 05:56 Est Cr Clr Drug Dosing 101.0 ml/min 02/13/24 05:56 Est GFR ( Amer) 112.3 ml/min 02/13/24 05:56 Est GFR (Non-Af Amer) 96.9 ml/min 02/13/24 05:56 BUN/Creatinine Ratio 21.7 (10-20) H 02/13/24 05:56 Glucose 121 mg/dl (70-99(Fasting)) H 02/13/24 05:56 Calcium 8.7 mg/dl (8.6-10.3) 02/13/24 05:56 Magnesium 1.7 mg/dl (1.7-2.4) 02/11/24 14:05 Total Bilirubin 0.8 mg/dl (0.2-1.0) 02/11/24 14:05 AST 23 U/L (13-39) 02/11/24 14:05 ALT 48 U/L (7-52) 02/11/24 14:05 Alkaline Phosphatase 145 U/L (34-104) H 02/11/24 14:05 Total Creatine Kinase 41 U/L (30-223) 02/11/24 14:05 C-Reactive Protein 3.80 mg/dl (0-0.5) H 02/12/24 06:27 Total Protein 7.5 gm/dl (6.0-8.3) 02/11/24 14:05 Albumin 3.9 gm/dl (3.4-5.0) 02/11/24 14:05 Globulin 3.6 gm/dl (2.5-4.0) 02/11/24 14:05 Albumin/Globulin Ratio 1.1 (0.9-2) 02/11/24 14:05 Urine Color Yellow 02/11/24 Unknown Urine Appearance Clear (Clear) 02/11/24 Unknown Urine pH 7.0 (4.5-7.5) 02/11/24 Unknown Ur Specific Beverly 1.017 (1.000-1.030) 02/11/24 Unknown Urine Protein Negative (Negative) 02/11/24 Unknown Urine Glucose (UA) Negative (Negative) 02/11/24 Unknown Urine Ketones 1+ (Negative) H 02/11/24 Unknown Urine Blood Negative (Negative) 02/11/24 Unknown Urine Nitrite Negative (Negative) 02/11/24 Unknown Urine Bilirubin Negative (Negative) 02/11/24 Unknown Urine Urobilinogen Negative (Negative) 02/11/24 Unknown Ur Leukocyte Esterase Trace (Negative) H 02/11/24 Unknown Urine WBC (Auto) 0-5 /hpf (0-5) 02/11/24 Unknown Urine RBC (Auto) 0-2 /hpf (0-2) 02/11/24 Unknown U Hyaline Cast (Auto) 0-2 /lpf (0-2) 02/11/24 Unknown U Epithel Cells (Auto) 0-2 /hpf (0-2) 02/11/24 Unknown Urine Bacteria (Auto) None Seen (None Seen) 02/11/24 Unknown Lyme Disease Screen Positive (Negative) H 02/11/24 14:00 Lyme Tier 2 IgG Confirm Positive (Negative) H 02/11/24 14:00 Lyme Tier 2 IgM Confirm Positive (Negative) H 02/11/24 14:00 Impressions Chest X-Ray 02/11/24 13:53 XR chest 1V portable CLINICAL HISTORY: stroke alert TECHNIQUE: Single frontal radiograph of the chest was obtained. Comparison: Comparison is made to chest radiograph 01/31/2024 FINDINGS: No lines and tubes are seen. The cardiomediastinal silhouette is normal. The lungs are clear. No evidence of pleural effusion or pneumothorax. IMPRESSION: No acute chest disease. ACT 112: Negative or not required by law. Electronically signed by: Blair Dougherty M.D. 02/11/2024 2:22 PM Abdomen/Pelvis CT 02/11/24 14:42 CT abd pelvis IV con only CLINICAL HISTORY: abd pain wbc 20k and abck pain TECHNIQUE: Helical axial images of the abdomen and pelvis were obtained and displayed. Automated dose lowering techniques and/or adjustment according to patient size were utilized for this exam. This exam was performed with intravenous contrast. CT DOSE: 937.8 mGy.cm COMPARISON: Comparison is made to CT abdomen pelvis 01/31/2024 FINDINGS: Lower chest: Bibasilar atelectasis versus scarring is seen. Liver: Unremarkable. No focal lesions are seen. Gallbladder and biliary tree: Patient is status post cholecystectomy. Physiologic prominence of the biliary ducts is noted. Pancreas: Unremarkable, no focal lesions. Spleen: Unremarkable. Adrenals: Unremarkable. Kidneys and ureters: Nonobstructive nephrolithiasis is seen. 11 mm cyst is seen on the left. Bladder: Unremarkable. Reproductive organs: Prostatomegaly is seen. Bowel: Moderate hiatal hernia is seen. Lymph nodes Retroperitoneal: Unremarkable. Pelvic: Unremarkable. Mesenteric: Unremarkable. Peritoneum: Normal. Vessels: Unremarkable. Abdominal wall: Unremarkable. Bones: Unremarkable. IMPRESSION: 1. No acute abnormality to explain leukocytosis. 2. Diverticulosis without diverticulitis. 3. Status post cholecystectomy. ACT 112: Negative or not required by law. Electronically signed by: Blair Dougherty M.D. 02/11/2024 4:06 PM PG Care Time/CCT Total # of Minutes Spent Total Time Spent with Patient: Total time spent is greater than 50% in coordination of care (as documented) at patient's floor/unit and/or counseling patient: Coding Level of Care Code 70451 IN/OBS CONSULT LVL 5,80M Diagnoses Hyponatremia E87.1 Hypertension I10 Hypertension type: unspecified Acute bilateral low back pain with right-sided sciatica M54.41 Disseminated Lyme disease A69.20 (2) Hypertension Hypertension type: unspecified Qualified Code(s): I10 - Essential (primary) hypertension
[2024-02-13] MEDS: SODIUM CHLORIDE 3 % 50 ML IV ONE (18:29)
[2024-02-13] MEDS: POLYETHYLENE (MIRALAX) 17 GM PACK PO PRN (20:08)
[2024-02-13 20:19] LABS: BUN Creatinine Ratio 21.3 (10-20); Calcium 8.7 mg/dl (8.6-10.3); Creatinine Clr Calc Pharmacy 87.1 ml/min; Est GFR (African American) 105.6 ml/min; Est GFR (Non-African American) 91.1 ml/min
--- NOTE | 2024-02-13 21:49 | Hospitalist Progress Note ---
Date of Service February 13, 2024 Assessment & Plan (1) Acute bilateral low back pain with left-sided sciatica: (2) Hypertension: (3) Heart block AV first degree: Plan: Diffuse myalgias, lumbar pain, 1*HB , suspect 2/2 Lyme disease - Past history of Lyme 10 years ago. Could be IgG+ from prior exposure. Rescreen and western blot pending. Reported lyme positive has only taken 1 dose of doxycycline for this Rocephin given in the ER due to first-degree heart block. As [place] is less than 300, will switch to doxycycline 100 mg twice daily IV on admission Trend white count daily In house Lyme test pending No thrombocytopenia or transaminitis to suggest Anaplasma Multimodal pain control. Tylenol, Toradol, breakthrough morphine PT/OT pending ESR/CRP are elevated. CRP 1.53, this is trended UA is not infected appearing Statin temporarily held Blood cultures pending -If IgM is negative/Western blot is negative then add rheum workup at that time. CK pending. Diffuse myalgias and polyarthralgias have improved. -Hyponatremia due to worsening hyponatremia, will place omn fluid restriction and salt tablets/ GERD, hiatal hernia PPI continued DVT prophylaxis: Lovenox Disposition: Medical/telemetry given suspected line with new heart block CODE STATUS: Full code Diet: Heart healthy Admission and Anticipated Discharge Date Admission Date: February 13, 2024 Subjective Patient reports pain has improved. Review of Systems Review of Systems: All systems reviewed & are unremarkable except as noted in HPI & below Physical Exam Constitutional: WD/WN, vitals as above Eyes: + anicteric sclerae ENMT: external ear and nose normal, oropharynx normal Neck: trachea midline, no thyromegaly Respiratory: normal respiratory effort, lungs clear to auscultation Cardiovascular: RRR, no murmur, no edema Gastrointestinal (Abdomen): normal bowel sounds, soft, nontender, no hepatosplenomegaly Musculoskeletal: Head/Neck/Chest: normocephalic and head atraumatic Skin: no rashes, warm and dry Results & Data Results & Data Vital Signs (Past 12 Hours) Vital Signs Temp Pulse Pulse Resp BP BP Pulse Ox 02/13/24 19:26 36.8 C 64 16 124/75 95 02/13/24 15:33 36.7 C 63 18 189/94 H 97 02/13/24 14:07 64 02/13/24 11:52 36.5 C 111 H 18 144/76 H 97 02/13/24 11:13 77 O2 Del Method 02/13/24 19:26 Room Air 02/13/24 15:33 Room Air 02/13/24 14:07 02/13/24 11:52 Room Air 02/13/24 11:13 PG Care Time/CCT Total # of Minutes Spent Total Time Spent with Patient: Total time spent is greater than 50% in coordination of care (as documented) at patient's floor/unit and/or counseling patient: Coding Level of Care Code 62722 SUB INP/OBS CARE 2/35MIN Diagnoses Acute bilateral low back pain with left-sided sciatica M54.42 Hypertension I10 Hypertension type: unspecified Heart block AV first degree I44.0 (2) Hypertension Hypertension type: unspecified Qualified Code(s): I10 - Essential (primary) hypertension
[2024-02-13 22:53] VITALS: RESP 18
--- NOTE | 2024-02-14 05:29 | Electrocardiogram Report ---
Test Reason : Blood Pressure : */* mmHG Vent. Rate : 79 BPM Atrial Rate : 79 BPM P-R Int : 232 ms QRS Dur : 88 ms QT Int : 374 ms P-R-T Axes : 72 -6 28 degrees QTcB Int : 428 ms Sinus rhythm with 1st degree A-V block Otherwise normal ECG When compared with ECG of 31-Jan-2024 16:26, [place] interval has increased Confirmed by Elbert Antoine ([id number]) on 02/14/2024 5:29:34 AM Referred By: REFERRED SELF Confirmed By: Elbert Antoine
[2024-02-14 07:05] LABS: Basophils # (auto) 0.03 K/uL (0.00-0.20); Basophils % (auto) 0.3 %; Eosinophils # (auto) 0.18 K/uL (0.00-0.50); Eosinophils % (auto) 2.1 %; Hematocrit (blood only) 40.2 % (42.0-52.0); Hemoglobin 13.9 g/dl (14.0-18.0); Immature Granulocytes # (auto) 0.07 K/uL (0.01-0.20); Immature Granulocytes % (auto) 0.8 %; Lymphocytes # (auto) 1.67 K/uL (1.20-3.40); Lymphocytes % (auto) 19.3 %; Mean Corpuscular Hemoglobin 29.7 pg (25.0-34.0); Mean Corpuscular Hgb Conc 34.6 g/dL (32.0-36.0); Mean Corpuscular Volume 85.9 fL (80.0-100.0); Mean Platelet Volume 9.5 fL (9.4-12.4); Monocytes # (auto) 0.95 K/uL (0.11-0.59); Neutrophils # (auto) 5.77 K/uL (1.40-6.50); Neutrophils % (auto) 66.5 %; Platelet Count 265 K/uL (130-400); RDW Coefficient of Variation 11.9 % (11.5-14.5); RDW Standard Deviation 36.7 fL (36.4-46.3); Red Blood Count 4.68 M/uL (4.70-6.10); White Blood Count 8.67 K/ul (4.8-10.8)
[2024-02-14 07:23] LABS: BUN Creatinine Ratio 20.5 (10-20); Calcium 8.9 mg/dl (8.6-10.3); Est GFR (African American) 104.1 ml/min; Est GFR (Non-African American) 89.8 ml/min; Potassium 3.8 mmol/L (3.5-5.1)
[2024-02-14] MEDS: FUROSEMIDE 20 MG TAB PO SCH (10:10)
[2024-02-14] MEDS: SODIUM CHLORIDE 1 GM TABLET PO SCH (10:10)
[2024-02-14] MEDS: POLYETHYLENE (MIRALAX) 17 GM PACK PO SCH (10:10)
--- NOTE | 2024-02-14 10:38 | Nephrology Progress Note ---
Date of Service February 14, 2024 Assessment & Plan (1) Hyponatremia: Plan: * Acute hyponatremia. Patient is clinically euthyroid. Blood pressure is elevated, clinically doubt adrenal insufficiency. No evidence of CHF/cirrhosis/nephrosis. Patient is clinically euvolemic. Clinically suspect appropriate ADH release in response to severe low back pain. * Neurologically intact despite hyponatremia * Serum Na improved to 128 mmol/L following 3% NaCl yesterday * Patient reports that he did eat dinner last evening * Start NaCl 2g po BID * Start furosemide 20 mg po BID * BMP this afternoon * Obtain Uosm, BMP with am labs (2) Hypertension: Plan: * Blood pressure is fluctuating in response to back pain. Will monitor (3) Acute bilateral low back pain with right-sided sciatica: Plan: * Continue analgesic therapy. Recommend avoiding NSAIDs due to potential risk for renal injury * Consider low dose gabapentin therapy or evaluation by pain management. Question whether follow up spine MRI is needed (4) Disseminated Lyme disease: Plan: * Patient tested lying IgM positive * Currently on doxycycline therapy Admission and Anticipated Discharge Date Admission Date: February 13, 2024 Subjective Mr. Milligan was evaluated in his hospital room this morning. He c/o low back pain overnight requiring oxycodone therapy. Now has constipation. Denies difficulty ambulating or voiding. Tolerated 3% NaCl yesterday without complication. Review of Systems Constitutional: no fever Eyes: no problem reported Ear, Nose, Mouth, Throat: no problem reported Respiratory: no cough and no dyspnea Cardiovascular: no chest pain Gastrointestinal: + abdominal pain; no nausea, no vomiting and no diarrhea/loose stools Genitourinary: no dysuria, no urinary hesitancy or no hematuria Integumentary: no rash Physical Exam Constitutional: not in distress Eyes: PERRL, conjunctivae normal, anicteric sclerae ENMT: external ear and nose normal, oropharynx normal Neck: trachea midline, no thyromegaly Respiratory: normal respiratory effort, lungs clear to auscultation Cardiovascular: RRR, no murmur, no edema Gastrointestinal (Abdomen): normal bowel sounds, soft, nontender, no hepatosplenomegaly Musculoskeletal: Extremities: no cyanosis and no clubbing Skin: no rashes, warm and dry Neurologic: Speech / Cognition: normal speech and normal cognition Results & Data Vital Signs (Past 12 Hours) Vital Signs Temp Pulse Pulse Resp BP Pulse Ox O2 Del Method 02/14/24 07:37 36.9 C 65 18 171/86 H 94 Room Air 02/14/24 07:22 60 02/14/24 02:43 36.7 C 70 18 149/70 H 95 Room Air 02/13/24 22:36 36.4 C L 63 18 181/86 H 97 Room Air Laboratory Results Laboratory Results - last 24 hr 02/13/24 02/13/24 02/14/24 12:24 19:34 02:00 WBC RBC Hgb Hct MCV MCH MCHC RDW Std Deviation RDW Coeff of Radha Plt Count MPV Immature Gran % (Auto) Neut % (Auto) Lymph % (Auto) Jones % (Auto) Eos % (Auto) Baso % (Auto) Neut # (Auto) Lymph # (Auto) Jones # (Auto) Eos # (Auto) Baso # (Auto) Immature Gran # (Auto) Sodium 121 L 124 L Potassium 4.0 Chloride 92 L Carbon Dioxide 26 Anion Gap 6 BUN 17 Creatinine 0.80 Est Cr Clr Drug Dosing 87.1 Est GFR ( Amer) 105.6 Est GFR (Non-Af Amer) 91.1 BUN/Creatinine Ratio 21.3 H Glucose 130 H Calcium 8.7 Urine Osmolality 285 L 02/14/24 05:47 WBC 8.67 RBC 4.68 L Hgb 13.9 L Hct 40.2 L MCV 85.9 MCH 29.7 MCHC 34.6 RDW Std Deviation 36.7 RDW Coeff of Radha 11.9 Plt Count 265 MPV 9.5 Immature Gran % (Auto) 0.8 Neut % (Auto) 66.5 Lymph % (Auto) 19.3 Jones % (Auto) 11.0 Eos % (Auto) 2.1 Baso % (Auto) 0.3 Neut # (Auto) 5.77 Lymph # (Auto) 1.67 Jones # (Auto) 0.95 H Eos # (Auto) 0.18 Baso # (Auto) 0.03 Immature Gran # (Auto) 0.07 Sodium 128 L Potassium 3.8 Chloride 95 L Carbon Dioxide 25 Anion Gap 8 BUN 17 Creatinine 0.83 Est Cr Clr Drug Dosing 84.0 Est GFR ( Amer) 104.1 Est GFR (Non-Af Amer) 89.8 BUN/Creatinine Ratio 20.5 H Glucose 103 H Calcium 8.9 Urine Osmolality PG Care Time/CCT Total # of Minutes Spent Total Time Spent with Patient: Total time spent is greater than 50% in coordination of care (as documented) at patient's floor/unit and/or counseling patient: Coding Level of Care Code 67286 SUB INP/OBS CARE 3/50MIN Diagnoses Hyponatremia E87.1 Hypertension I10 Hypertension type: unspecified Acute bilateral low back pain with right-sided sciatica M54.41 Disseminated Lyme disease A69.20 (2) Hypertension Hypertension type: unspecified Qualified Code(s): I10 - Essential (primary) hypertension
[2024-02-14 11:23] VITALS: BP 162/78; TEMP 98.1; O2SAT 96
[2024-02-14 13:22] LABS: C Reactive Protein 0.92 mg/dl (0-0.5); Calcium 9.2 mg/dl (8.6-10.3); Creatinine Clr Calc Pharmacy 69.7 ml/min; Est GFR (African American) 88.6 ml/min; Est GFR (Non-African American) 76.5 ml/min; Potassium 4.4 mmol/L (3.5-5.1)
[2024-02-14 14:55] VITALS: PULSE 67
[2024-02-14] MEDS ORDERED: FUROSEMIDE 20 MG TAB PO SCH (17:00)
--- NOTE | 2024-02-19 08:20 | Discharge Summary ---
Discharge Summary Date of Service February 14, 2024 Principal Dx & Hospital Course #1 = Principal Diagnosis (1) Acute bilateral low back pain with left-sided sciatica: (2) Hypertension: (3) Heart block AV first degree: Diffuse myalgias, lumbar pain, 1*HB , suspect 2/2 Lyme disease - Past history of Lyme 10 years ago. Could be IgG+ from prior exposure. Reported lyme positive has only taken 1 dose of doxycycline for this Rocephin given in the ER due to first-degree heart block. As NV is less than 300, will switch to doxycycline 100 mg twice daily IV on admission Trend white count daily In house Lyme test IgM positve. -Likely reinfection of doxycycline. Patient improved with doxycyline and will continue course for 21 days to treat early disseminated lyme disease. No thrombocytopenia or transaminitis to suggest Anaplasma Diffuse myalgias and polyarthralgias have improved. -Hyponatremia due to worsening hyponatremia, will place on fluid restriction and salt tablets Suspect ADH release due to severe low back pain as patient is euhtyroid, doubt adrenal insufficiency, no evidence of CHF/ cirrhosis/nephrosis. sodium improved to 131. GERD, hiatal hernia PPI continued Admission HPI Per Admitting Provider Justus is a 69-year-old male with multiple recent h ER visits for low back pain, anterior thigh paresthesias, and diffuse muscle aches. Patient was seen in the ER and had an MRI on 02/02/2024 which showed no acute fracture or subluxation or marrow edema, disc degeneration at L4-L5 with mild bilateral for aminal stenosis and no central canal stenosis. Patient did follow-up with Dr. Chirinos who felt symptoms were unlikely related to this. Patient was placed on steroids which were stopped approximately 4 days ago. Reportedly with an outpatient Lyme test which was positive, patient has just recently taken his first dose of doxycycline for this. Patient's reports they have been to the ER 4 times in 10 days, patient has not improved in the last week and is clear that due to his pain and his inability to perform functional activities will not take him home at this time. EKG: Sinus with first-degree AV block, AV block is new compared to 01/31/2024 No transaminitis or thrombocytopenia to suggest Anaplasma CRP/ESR are elevated. White count is elevated 19. Has recently been on steroids which were stopped 4 days ago. CTA/P: No acute findings Chest x-ray no acute findings 02/01 MRIL-spine: No fracture/subluxation/marrow edema. Mild disc degeneration L4-L5 with mild bilateral for medial stenosis. No significant canal stenosis CTA/P 01/30: No acute findings, moderate hiatal hernia Chest x-ray 01/31/2024: No acute finding Reportedly with positive Lyme test as an outpatient, no record of this. Patient was given Rocephin x 1 for Lyme coverage and with evidence of heart block on EKG. NV is less than 300. 3 weeks ago developed back pain bilateral mid low back. Also had aching down the front of both legs. Tylneol didn't help. Went to a Chiropractor who referred him to the ER. ER assessment at that time was unremarkable. Was discharged home and still had severe abdominal pain, back pain, and radiatino of aching into his thighs, hips, and calves bilaterally. Had an MRI, and followed up with Dr. Chirinos. [place] that symptoms were not consistent with mild disease seen MRI. Had additional outpatient testing including a lyme which was reportedly positive. Has continued to have pain worse at night and radiating down his legs. Was prescribed doxycycline, but just took his first dose of doxycycline last night. Took one dose last night, but pain was severe last night and could not function at home so came back. Did discuss return home and tried to go home earlier, but was again in too much discomfort and pain with tx with ER provider however due to his severe symptoms limiting his ability to function is not willing to return home at this time. Is recommended for admission for tx of Lyme disease. Feels fatigued and weak all over, but no focal weakness Appetite diminished, not eating and drinking well Took a course of medrol dosepack which did not touch his pain at all. Also tried alternating ibuprofen and tylneol which again did nothing. He has had a hsitory of Lyme disease 10-15 years ago with erythema migrans at that time. No recent tick bites or rash to his knowledge. MedHx: Denies other medication history. Takes atorvastain sinc eage 40, protonix for acid reflux, baby aspirin for primary prevention and not taken this all week. Medical History: Reviewed Medications: Reviewed Surgical History: Reviewed Family history: Reviewed Allergies: Reviewed Social History: REviewed Code Status: Full Discharge Exam Constitutional WD/WN, vitals as above Eyes + anicteric sclerae ENMT external ear and nose normal, oropharynx normal Neck trachea midline, no thyromegaly Respiratory normal respiratory effort, lungs clear to auscultation Cardiovascular RRR, no murmur, no edema Gastrointestinal (Abdomen) normal bowel sounds, soft, nontender, no hepatosplenomegaly Musculoskeletal Head/Neck/Chest: normocephalic and head atraumatic Skin no rashes, warm and dry Discharge Plan Discharge Items Patient Disposition: Home - Self-Care Reason For Visit: MYALGIAS, 1* HB, LYME Discharge Diagnosis: lyme Activity: Resume your previous activity Non-emergency contact: Primary Care Provider Call non-emergency contact if: you have any medication questions Follow-up/Referrals: Kirstie Morris PA-C [Primary Care Provider] - (PLEASE CALL YOUR PRIMARY CARE PROVIDER TO SCHEDULE A HOSPITAL DISCHARGE FOLLOW-UP APPOINTMENT WITHIN 7-10 DAYS) Diet: Heart Healthy Ambulatory Orders: Basic Metabolic Panel (Routine) Timeframe: 20240220 Location: Determined by Patient Ordered By: Jagdish Londono Attending Provider Instructions: You were diagnosed with Lyme disease. You will be on doxycycline for 18 more days. Your pain should improve as you complete the course. Your pain medicine regimen will include: Tylenol 650 mg every 6 hours or 4 times a day scheduled. You will then be taking as needed: oxycodone 5 mg for moderate pain 4-6 oxycodone 10 mg for severe pain 7-10 Pain is controlled if it is under 4/10. You will be taking docusate and miralax for constipation as oxycodone will give you constipation. In regards to your sodium, you will be on salt tablets 2 grams once a day, Furosemide 20 mg once a day. Repeat BMP next Tuesday. Also recommend followup with PCP in 1-2 weeks. Pending Studies at Discharge: No Stand-Alone Forms: My [facility] Transactiv, Smoking Cessation Medications and DC Order Prescriptions: New docusate sodium 60 mg/15 mL Syrup 100 mg PO DAILY PRN (Reason: constipation) Qty: 480 0RF sodium chloride 1,000 mg Tablet,Soluble 2,000 mg PO DAILY Qty: 14 0RF polyethylene glycol 3350 [Miralax] 17 gram Powder In Packet 17 g PO DAILY PRN (Reason: while on oxycodone) Qty: 14 0RF furosemide 20 mg Tablet 20 mg PO DAILY Qty: 7 0RF diclofenac sodium [Voltaren Arthritis Pain] 1 % Gel 2 g EXT BID Qty: 100 0RF acetaminophen 325 mg Tablet 650 mg PO Q6H 14 Days Qty: 112 0RF Continued multivitamin [Multiple Vitamins] Tablet 1 tab PO QPM atorvastatin [Lipitor] 40 mg Tablet 40 mg PO QPM omega 4-hec-coq-fish oil [Fish Oil] 1,000 mg (120 mg-180 mg) Capsule 1 tab PO QPM pantoprazole 40 mg tablet,delayed release (DR/EC) 40 mg PO DAILY aspirin 81 mg Tablet,Delayed Release (Dr/Ec) 81 mg PO QPM magnesium oxide 400 mg magnesium Capsule 800 mg PO DAILY methylprednisolone [Medrol (Luther)] 4 mg tablets,dose pack See Rx Instructions .ROUTE .COMPLEX Qty: 21 0RF Rx Instructions: As Per Packaging doxycycline hyclate 100 mg tablet 100 mg PO BID 18 Days Qty: 36 0RF Rx Instructions: First dose tonight at 8-9p,m. Try to take it 12 hours apart. Limit exposure to sunlight and wear sunblock. Changed oxycodone 5 mg tablet See Rx Instructions .ROUTE .COMPLEX PRN (Reason: pain) Qty: 30 0RF Rx Instructions: By mouth: Take 10 mg for severe pain every 6 hours Take 5 mg for moderate pain every 6 hours. Discontinued ketorolac 10 mg tablet 10 mg PO Q8H PRN (Reason: pain) 4 Days Qty: 14 0RF Discharge Orders: Discharge Order (Routine); Ordered 02/14/24 Ordered By: Jagdish Trujillo Admission Data Admit Date/Time: 02/13/24 13:42 Attending Provider: Jagdish Trujillo Admit Provider: Arsh Jain Primary Care Provider: Kirstie Morris Other Providers: Arsh Jain; Jamila Woody; Darryl Camacho Other Interventions: Discharge Summary Assessment (RN) Last Done: 02/14/24 14:54 Hospital Stay Data Consultations 02/11/24 16:48 ED Decision to Admit Stat 02/13/24 13:41 Consult Nephrology Routine Diagnostic Imagining Performed 02/11/24 14:42 CT Abd and Pelvis [CT abd pelvis IV con only] Stat Pending Results Patient Have Any Pending Studies at Discharge: No Discharge Instructions Given to Patient (Per Discharging Provider) You were diagnosed with Lyme disease. You will be on doxycycline for 18 more days. Your pain should improve as you complete the course. Your pain medicine regimen will include: Tylenol 650 mg every 6 hours or 4 times a day scheduled. You will then be taking as needed: oxycodone 5 mg for moderate pain 4-6 oxycodone 10 mg for severe pain 7-10 Pain is controlled if it is under 4/10. You will be taking docusate and miralax for constipation as oxycodone will give you constipation. In regards to your sodium, you will be on salt tablets 2 grams once a day, Furosemide 20 mg once a day. Repeat BMP next Tuesday. Also recommend followup with PCP in 1-2 weeks. Total Time Total Time Spent Total Time Spent (In Minutes): 32 Coding Level of Care Code 04690 INP/OBS DISCH >30 MIN Diagnoses Acute bilateral low back pain with left-sided sciatica M54.42 Hypertension I10 Hypertension type: unspecified Heart block AV first degree I44.0
== END 2024-02-14 15:16 | disposition home or self-care (01) | DRG 868 ==
LOC: 2N 13:45 → ED 13:45 → SUATTDRO 17:06 → 2N 18:03